=== PATIENT | male | born 1955 | race Caucasian/White ===

== ENCOUNTER 2018-04-12 18:26 | Emergency (ER) | payer BC ==
[~2018-04-12] VITALS: Ht 177.8 cm; Wt 79.4 kg
[2018-04-12 18:29] VITALS: Ht 177.8 cm; Wt 79.4 kg
[2018-04-12 22:30] VITALS: BP 151/84
== END 2018-04-12 22:30 | disposition home or self-care (01) ==
LOC: ED 18:26
DX: N20.1 Calculus of ureter (principal); I10 Essential (primary) hypertension

== ENCOUNTER 2018-12-11 20:01 | Emergency (ER) | payer BC ==
[~2018-12-11] VITALS: Ht 177.8 cm; Wt 70.3 kg
[2018-12-11 20:11] VITALS: Ht 177.8 cm; Wt 70.3 kg
[2018-12-11 22:47] VITALS: BP 145/82
== END 2018-12-11 22:47 | disposition home or self-care (01) ==
LOC: ED 20:01
DX: S13.4XXA Sprain of ligaments of cervical spine, initial encounter (principal); S60.413A Abrasion of left middle finger, initial encounter; S60.415A Abrasion of left ring finger, initial encounter; S60.417A Abrasion of left little finger, initial encounter; I10 Essential (primary) hypertension; Z95.0 Presence of cardiac pacemaker; V49.49XA Driver injured in collision with other motor vehicles in traffic accident, initial encounter; Y93.I9 Activity, other involving external motion; Y92.413 State road as the place of occurrence of the external cause; Y99.8 Other external cause status